=== PATIENT | female | born 1985 | race Hispanic/Latino ===

== ENCOUNTER 2020-08-31 18:42 | Emergency (ER) | payer OTHER, MEDICARE ==
[~2020-08-31] VITALS: Ht 160 cm; Wt 104.3 kg
[2020-08-31 19:28] LABS: CLARITY,URINE HAZY (CLEAR); COLOR,URINE PINK (YELLOW); KETONES,URINE NEGATIVE (NEGATIVE); LEUKOCYTE ESTERASE ,URINE TRACE (NEGATIVE); NITRITE,URINE NEGATIVE (NEGATIVE); PROTEIN,URINE DIPSTICK 1+ (NEGATIVE); URINE UROBILINOGEN 0.2 mg/dL (0.2 - 1)
[2020-08-31 19:29] LABS: BASOPHILS % 0.3 % (0.0-1.0); EOSINOPHILS # (AUTO) 0.4 (0.0-0.4); EOSINOPHILS % 2.6 % (0.0-6.0); HEMATOCRIT 39.5 % (34.2-44.1); HEMOGLOBIN 12.9 g/dL (12.0-16.0); LYMPHOCYTES # (AUTO) 2.1 (1.0-3.2); LYMPHOCYTES % 15.7 % (18.0-39.1); MEAN CORPUSCULAR HEMOGLOBIN 28.7 pg (28-32); MEAN CORPUSCULAR HGB CONC 32.7 g/dL (31-35); MEAN CORPUSCULAR VOLUME 87.8 fL (81-99); MONOCYTES # (AUTO) 0.7 (0.2-0.8); MONOCYTES % 5.3 % (4.4-11.3); NEUTROPHILS # (AUTO) 10.2 (2.1-6.9); NEUTROPHILS % 75.7 % (38.7-80.0); PLATELET COUNT 346 x10e3/uL (140-360); RED CELL DISTRIBUTION WIDTH 12.6 % (11.7-14.4)
[2020-08-31 19:40] LABS: BACTERIA,URINE MODERATE /HPF; RBC,URINE 21-50 /HPF (0-5)
[2020-08-31 19:45] LABS: ALANINE AMINOTRANSFERASE 23 IU/L (0-55); ALKALINE PHOSPHATASE 105 IU/L (40-150); ANION GAP 15.9 mmol/L (8-16); BLOOD UREA NITROGEN 13 mg/dL (7-26); BUN/CREATININE RATIO 16 (6-25); CALCIUM 8.6 mg/dL (8.4-10.2); CARBON DIOXIDE 22 mmol/L (22-29); CHLORIDE 106 mmol/L (98-107); EST GLOMERULAR FILTRATION RATE > 60 ML/MIN (60-); GLUCOSE 106 mg/dL (74-118); POTASSIUM 3.9 mmol/L (3.5-5.1); SODIUM 140 mmol/L (136-145)
[2020-08-31] MEDS ORDERED: IBUPROFEN200 MG PO (20:57)
== END 2020-08-31 21:26 | disposition home or self-care (01) ==
LOC: ER 18:50
DX: N93.8 Other specified abnormal uterine and vaginal bleeding (principal); E28.2 Polycystic ovarian syndrome; I10 Essential (primary) hypertension; E11.9 Type 2 diabetes mellitus without complications
CPT/HCPCS: 36415; 76830; 76856; 80053; 81001; 84702; 85025; 99284

== ENCOUNTER 2020-11-05 13:34 | Emergency (ER) | payer OTHER, MEDICARE ==
[~2020-11-05 13:34] MED LIST: IBUPROFEN200 MG PO
[2020-11-05 14:33] LABS: ANION GAP 11.3 mmol/L (8-16); BLOOD UREA NITROGEN 12 mg/dL (7-26); BUN/CREATININE RATIO 18 (6-25); CALCIUM 8.2 mg/dL (8.4-10.2); CARBON DIOXIDE 25 mmol/L (22-29); CHLORIDE 107 mmol/L (98-107); CREATININE, SERUM 0.67 mg/dL (0.57-1.11); EST GLOMERULAR FILTRATION RATE 100 ML/MIN (60-); GLUCOSE 113 mg/dL (74-118); POTASSIUM 4.3 mmol/L (3.5-5.1); SODIUM 139 mmol/L (136-145)
[2020-11-05 14:36] LABS: BASOPHILS % 0.4 % (0.0-1.0); EOSINOPHILS % 1.7 % (0.0-6.0); HEMATOCRIT 32.6 % (34.2-44.1); HEMOGLOBIN 9.9 g/dL (12.0-16.0); LYMPHOCYTES % 15.6 % (18.0-39.1); MEAN CORPUSCULAR HEMOGLOBIN 25.8 pg (28-32); MEAN CORPUSCULAR HGB CONC 30.4 g/dL (31-35); MEAN CORPUSCULAR VOLUME 84.9 fL (81-99); MONOCYTES % 4.5 % (4.4-11.3); NEUTROPHILS % 77.3 % (38.7-80.0); PLATELET COUNT 376 x10e3/uL (140-360); RED BLOOD COUNT 3.84 x10e6/uL (3.6-5.1); RED CELL DISTRIBUTION WIDTH 13.1 % (11.7-14.4)
[2020-11-05 14:37] LABS: EOSINOPHILS # (AUTO) 0.2 (0.0-0.4); LYMPHOCYTES # (AUTO) 1.5 (1.0-3.2); MONOCYTES # (AUTO) 0.5 (0.2-0.8); NEUTROPHILS # (AUTO) 7.7 (2.1-6.9)
== END 2020-11-05 13:45 | disposition home or self-care (01) ==
LOC: ER 13:34
DX: N93.8 Other specified abnormal uterine and vaginal bleeding (principal); R11.0 Nausea; R10.30 Lower abdominal pain, unspecified; R51.9 Headache, unspecified; R53.83 Other fatigue; E11.9 Type 2 diabetes mellitus without complications; E28.2 Polycystic ovarian syndrome; I10 Essential (primary) hypertension
CPT/HCPCS: 36415; 80048; 84702; 85025; 86850; 86900; 99283

== ENCOUNTER → 2021-10-31 | Outpatient (CLI) | payer OTHER | LOC: RAD 10:55 | PROVIDERS: ATTEND Internal Medicine | DX: S93.602A Unspecified sprain of left foot, initial encounter (principal) ==

== ENCOUNTER → 2022-07-16 | Outpatient (CLI) | payer OTHER | LOC: US 10:34 | PROVIDERS: ATTEND Internal Medicine | DX: N92.1 Excessive and frequent menstruation with irregular cycle (principal); M19.011 Primary osteoarthritis, right shoulder | CPT/HCPCS: 76830; 76856 ==

== ENCOUNTER 2023-09-12 11:15 | Emergency (ER) | payer OTHER ==
[~2023-09-12] VITALS: Ht 160 cm; Wt 104.3 kg
[2023-09-12] MEDS ORDERED: SODIUM CHLORIDE FLUSH 10 ML SYR IV PRN (12:00)
[2023-09-12 12:14] LABS: BASOPHILS % 0.4 % (0.0-1.0); EOSINOPHILS # (AUTO) 0.2 (0.0-0.4); EOSINOPHILS % 2.9 % (0.0-6.0); HEMATOCRIT 37.5 % (34.2-44.1); HEMOGLOBIN 11.6 g/dL (12.0-16.0); LYMPHOCYTES # (AUTO) 1.9 (1.0-3.2); LYMPHOCYTES % 34.8 % (18.0-39.1); MEAN CORPUSCULAR HEMOGLOBIN 25.5 pg (28-32); MEAN CORPUSCULAR HGB CONC 30.9 g/dL (31-35); MEAN CORPUSCULAR VOLUME 82.4 fL (81-99); MONOCYTES # (AUTO) 0.4 (0.2-0.8); NEUTROPHILS % 54.5 % (38.7-80.0); PLATELET COUNT 276 x10e3/uL (140-360); RED BLOOD COUNT 4.55 x10e6/uL (3.6-5.1); RED CELL DISTRIBUTION WIDTH 14.9 % (11.7-14.4); WHITE BLOOD COUNT 5.55 x10e3/uL (4.8-10.8)
[2023-09-12] MEDS: KETOROLAC TROMETHAMINE 30 MG/ML VIAL IV STA (12:20)
[2023-09-12] MEDS: BENZONATATE 100 MG CAP PO STA (12:20)
[2023-09-12 12:30] LABS: ALANINE AMINOTRANSFERASE 33 IU/L (0-55); ALBUMIN 3.7 g/dL (3.5-5.0); ALKALINE PHOSPHATASE 86 IU/L (40-150); ANION GAP 13.8 mmol/L (8-16); BILIRUBIN,TOTAL 0.4 mg/dL (0.2-1.2); BLOOD UREA NITROGEN 10 mg/dL (7-26); BUN/CREATININE RATIO 14 (6-25); CALCIUM 8.9 mg/dL (8.4-10.2); CARBON DIOXIDE 24 mmol/L (22-29); CHLORIDE 105 mmol/L (98-107); CREATININE, SERUM 0.71 mg/dL (0.57-1.11); EST GLOMERULAR FILTRATION RATE 112 ML/MIN (>=60); GLUCOSE 91 mg/dL (74-118); POTASSIUM 3.8 mmol/L (3.5-5.1); SODIUM 139 mmol/L (136-145); TOTAL PROTEIN 7.3 g/dL (6.5-8.1)
[2023-09-12 12:45] LABS: TROPONIN I < 0.001 ng/mL (0-0.300)
[2023-09-12] MEDS ORDERED: BENZONATATE100 MG PO (14:53)
[2023-09-12 16:33] VITALS: BP 156/90; PULSE 85; RESP 17; O2SAT 100
== END 2023-09-12 15:50 | disposition home or self-care (01) ==
LOC: ER 11:20
DX: R05.9 Cough, unspecified (principal); R07.89 Other chest pain; J06.9 Acute upper respiratory infection, unspecified; L98.9 Disorder of the skin and subcutaneous tissue, unspecified; I10 Essential (primary) hypertension; E11.9 Type 2 diabetes mellitus without complications; M10.9 Gout, unspecified; M06.9 Rheumatoid arthritis, unspecified; E28.2 Polycystic ovarian syndrome; Z11.52 Encounter for screening for COVID-19
CPT/HCPCS: 36415; 71046; 73140; 80053; 83880; 84484; 84702; 85025; 85379; 87400; 93005; 99283; J1885; U0002